=== PATIENT | female | born 1990 | race African-American/Black ===

== ENCOUNTER 2017-03-28 03:18 | Observation (INO) ==
[2017-03-28] MEDS ORDERED: SODIUM CHLORIDE 0.9% 1,000 ML IV STA (04:00)
--- NOTE | 2017-03-28 04:00 | Emergency Department Note ---
Arrival - Arrival Chief Complaint: Post Surgical Stated Complaint: got tonsils out , cant eat ED Nursing Triage Note: patient states she had toncils removed on the , complains that she cant eat anything, weak, ad decreased urine output. fould odor noted to breath. Mode of Arrival: Ambulatory Time Seen by Provider: 03/28/17 03:55 - History of Present Illness HPI Narrative: Patient had tonsils out Monday. She states now she is "weak" and has decreased urinary output. The patient has not been able to eat or drink due to soreness in the throat. She denies any fever but has had a white coating on her tongue which she says is abnormal. The patient denies any other complaints at this time. She states she was told by Dr. Baker's nurse to come up here to be evaluated. Allergies/Adverse Reactions: Allergies Allergy/AdvReac Type Severity Reaction Status Date / Time No Known Allergies Allergy Verified 03/25/17 17:15 Home Medications: Home Medications Medication Instructions Recorded Confirmed Type Norgestimate-Ethinyl Estradiol 1 each PO QAM 03/17/17 03/28/17 History [Sprintec 28 Day Tablet] HYDROcod/ACETAM 7.5-325MG/15ML 15 ml PO Q4H PRN 03/25/17 03/28/17 History Ibuprofen Liquid [Motrin Liquid] 15 ml PO Q4H 03/25/17 03/28/17 History Promethazine Liquid [Phenergan 25 mg PO Q6H PRN #300 ml 03/25/17 03/28/17 Rx Liquid] prednisoLONE LIQUID [prednisoLONE 15 ml PO DAILY 03/25/17 03/28/17 History Soln] Review of System - Review of System 12 point system: reviewed and no additional remarkable complaints except as stated Medical,Surgical,& Family Hx - Surgical History HEENT Surgeries: Surgical HX of: Tonsilectomy & Adenoidectomy (03/24/17) - Social History Smoking Status: Current every day smoker Frequency of Alcohol Use: Occasionally Type of Drug Use: None Exam Physical Examination: General: Patient is well-developed and well-nourished with no acute distress noted. HEENT: The extraocular muscles are intact. Oropharynx is moist. There is no erythema or exudate. The tympanic membranes are shiny bilaterally. The tonsils appear to have a small amount of exudate bilaterally which is normal for the given timeframe post tonsillectomy. I see no exudate or coating on the tongue at this time. There are no other lesions within the mouth. Neck: There is no adenopathy. Full range of motion is noted without pain. The trachea is midline. No JVD is present. Lungs: There is normal excursion of the chest with the lungs sounding clear bilaterally. No subcostal retractions are present. There is no point tenderness present. Heart: The heart has a regular rate and rhythm with no gallops or murmurs. Abdomen: The abdomen is nontender and nondistended with no rebound, guarding, or masses. Bowel sounds are normal. Back: The back demonstrates a normal appearance with no evidence of trauma. Genitourinary: Not examined. Extremities: The extremities demonstrate no clubbing, cyanosis, or edema. The visualized range of motion is normal. They appear atraumatic. Neuro: Cranial nerves II through XII are checked and intact. There is no focal motor or sensory deficit seen in the extremities. Skin: Skin is warm and dry with no evidence of rash. Vital Signs: Vital Signs Temperature 98.7 F 03/28/17 03:20 Pulse Rate 106 H 03/28/17 03:20 Respiratory Rate 20 03/28/17 03:20 Blood Pressure 132/88 03/28/17 03:20 O2 Sat by Pulse Oximetry 99 03/28/17 03:20 Course - Consultations Consultation #1: Discussed the patient with Dr. Roland who will come see the patient in a few hours. He request admit the patient to [facility]. He also recommends Decadron, clindamycin, and continuance of fluids. Time: 05:12 Results - Labs CBC & BMP: 03/28/17 04:05 03/28/17 04:05 Lab Results: I have reviewed the patients labs Disposition Clinical Impression: Symptomatic anemia, Status post tonsillectomy Case discussed with: patient Disposition: Still a Patient Condition: Stable Time of Disposition: 05:13
[2017-03-28 04:14] LABS: Eosinophils # 0.1 10*3/uL (0.0-0.87); Eosinophils % 0.8 % (0.00-10.9); Hemoglobin 8.9 GM/DL (12.0-16.0); Immature Granulocytes % 0.3 %; Immature Granulocytes Absolute 0.02 #; Lymphocytes # 1.7 10*3/uL (1.4-4.0); Lymphocytes % 24.1 % (21.3-54.2); Mean Corpuscular HGB Conc 30.7 GM/DL (32-36); Mean Corpuscular Hemoglobin 22 PG (27-34); Mean Corpuscular Volume 72.5 FL (87-102); Mean Platelet Volume 10.1 FL (9.6-12.0); Monocytes # 0.7 10*3/uL (0.11-0.8); Monocytes % 10.2 % (1.7-12.7); Neutrophils # 4.6 10*3/uL (1.4-7.4); Neutrophils % 64.6 % (38.7-73.9); Platelet Count 331 T/CUMM (130-400); Red Cell Distribution Width 15.6 % (9.3-17.3); White Blood Count 7.2 T/CUMM (4-12)
[2017-03-28 04:57] LABS: Calcium 9.1 MG/DL (8.5-10.1); Magnesium 2.2 MG/DL (1.8-2.4); Osmolality,Calculated 275.5 MOS/KG (273-304); Potassium 3.9 MMOL/L (3.5-5.1)
[2017-03-28 05:15] LABS: Apearance,Urine Slightly Hazy (Clear); Bilirubin,Urine Negative (Negative); Blood, Urine Negative (Negative); Glucose,Urine (UA) Negative (Negative); Ketones,Urine 20 mg/dL (Negative); Mucus,Urine Occasional /LPF (Occasional); Nitrite,Urine Negative (Negative); Protein,Urine Negative; RBC,Urine <1 /HPF (0-4); Squamous Epithelial Cell,Urine Occasional /HPF (0-10); Urine Color Yellow (Yellow); Urine Specific Gravity 1.021 (1.001-1.035); WBC,Urine 1 /HPF (0-6)
[2017-03-28] MEDS ORDERED: ONDANSETRON 4 MG/2 ML VIAL IV PRN (05:17)
[2017-03-28] MEDS ORDERED: HYDROcod/ACETAMIN 7.5-325 MG/15 ML UDCUP PO PRN (05:17)
[2017-03-28] MEDS ORDERED: IBUPROFEN 100 MG/5 ML UDCUP PO PRN (05:17)
[2017-03-28] MEDS: DEXAMETHASONE 4 MG/1 ML VIAL IV SCH ×2 (06:37→13:24)
[2017-03-28] MEDS: ONDANSETRON 4 MG/2 ML VIAL IV SCH ×3 (06:43→17:24)
[2017-03-28] MEDS ORDERED: DEXAMETHASONE INJ 4 MG in SODIUM CHLORIDE 0.9% 50 ML IV SCH (09:00)
[2017-03-28] MEDS: LACTATED RINGERS 1,000 ML IV SCH ×2 (09:06→14:17)
[2017-03-28] MEDS: CLINDAMYCIN 15 MG/ML 100 ML/BOTTLE PO SCH ×2 (09:06→13:24)
[2017-03-28] MEDS: HYDROcod/ACETAMIN 7.5-325 MG/15 ML UDCUP PO PRN ×2 (10:27→16:17)
[2017-03-28 13:06] LABS: Hematocrit 27.9 VOL% (35.7-47.0); Hemoglobin 8.5 GM/DL (12.0-16.0)
[2017-03-28 15:35] VITALS: BP 131/70
--- NOTE | 2017-03-28 17:36 | General Surg History&Physical ---
Assessment and Plan - Time spent with patient Time spent with patient: Less than 30 minutes (1) Status post tonsillectomy Status: Acute Assessment and plan: admit for observation, hydration, repeat H/H. administered parenteral steroids , clindamycin, hydrocodone liquid prn. will reexamine later today. Current Visit: Yes History of Present Illness Chief complaint: throat pain History of present illness: Ms. Da Silva is a 26 year old female s/p tonsillectomy and adenoidectomy on 03/24/17. Presented to ER with throat pain, seen by Dr. Bellamy, noted to have positive tilt test and H/H of 07/07. Reports throat still sore, denies any bleeding. Unsure about preop H/H or history of anemia. Home Medications Medication Instructions Recorded Confirmed Type Norgestimate-Ethinyl Estradiol 1 each PO QAM 03/17/17 03/28/17 History [Sprintec 28 Day Tablet] HYDROcod/ACETAM 7.5-325MG/15ML 15 ml PO Q4H PRN 03/25/17 03/28/17 History Ibuprofen Liquid [Motrin Liquid] 15 ml PO Q4H 03/25/17 03/28/17 History Promethazine Liquid [Phenergan 25 mg PO Q6H PRN #300 ml 03/25/17 03/28/17 Rx Liquid] prednisoLONE LIQUID [prednisoLONE 15 ml PO DAILY 03/25/17 03/28/17 History Soln] Allergies Allergy/AdvReac Type Severity Reaction Status Date / Time No Known Allergies Allergy Verified 03/25/17 17:15 Medical,Surgical,& Family Hx - Medical History HEENT: History of: Ear Problem (tubes placed to bilateral ears for fluid collection), Eye Problem (wears glasses) - Surgical History HEENT Surgeries: Surgical HX of: Tonsilectomy & Adenoidectomy (03/24/17) - Family History Family History: Reports;: Family Diabetes (mother), Family Hypertension (mother) , Additional Family History (mother has high cholesterol) - Social History Smoking Status: Current every day smoker Frequency of Alcohol Use: Occasionally Type of Drug Use: None Exam - Constitutional Vitals: Period Temp Pulse Resp BP Sys/Espino Pulse Ox Last 24 Hr 97.0 F-98.7 F 85-130 18-20 115-169/47-102 99-100 General appearance: morbidly obese - Head Head exam: Present: normal inspection - ENT Mouth exam: Present: other (expected eschar on tonsillar fossae. no clot, no blood. uvula with minimal edema) Results - Labs CBC & BMP: 03/28/17 12:53 03/28/17 04:05 - Impressions s/p T&A, normal postop appearance. anemia of unclear etiology, possibly pre- existing.
--- NOTE | 2017-03-28 17:41 | Discharge Summary ---
Hospital Course - Hospital Course Hospital Course: uneventful, able to tolerate liquids. no bleeding noted. H/H relatively stable - Time spent with patient Time with patient DS: Less than 30 minutes Diagnosis - Discharge Diagnosis (1) Status post tonsillectomy Status: Acute Specialty Discharge - Follow Up or Referrals Follow up with: Surendra Baker DO [Physician] - (Please call office first thing in the morning to find out when scheduled follow up appointment is and follow up as instructed with Dr. Baker.) - Speciality Discharge Instructions ENT Instructions: resume postop instructions from day surgery discharge Discharge Plan - Discharge Data Disposition: Disch To Home/Self Care Condition at Discharge: Stable Discharge Diet: advance to your usual diet Activity: resume usual activities as tolerated - Discharge Medications No Action Norgestimate-Ethinyl Estradiol [Sprintec 28 Day Tablet] 1 each PO QAM prednisoLONE LIQUID [prednisoLONE Soln] 15 ml PO DAILY HYDROcod/ACETAM 7.5-325MG/15ML 15 ml PO Q4H PRN PRN Reason: Pain Ibuprofen Liquid [Motrin Liquid] 15 ml PO Q4H Promethazine Liquid [Phenergan Liquid] 25 mg PO Q6H PRN #300 ml PRN Reason: nausea or pain - Follow Up or Referral Follow Up: Surendra Baker DO [Physician] - (Please call office first thing in the morning to find out when scheduled follow up appointment is and follow up as instructed with Dr. Baker.) - Forms/Instructions Instructions: Tonsillectomy (DC), Anemia (DC), Sore Throat, Building Wrecker ( GEN) Exam - Constitutional Vitals: Period Temp Pulse Resp BP Sys/Espino Pulse Ox Last 24 Hr 97.0 F-98.7 F 85-130 18-20 115-169/47-102 99-100 - ENT ENT exam: Present: other (normal postop appearance for tonsillectomy, POD 4) Discharge Results Labs on day of discharge: Labs from last 24 hours 03/28/17 03/28/17 03/28/17 12:53 04:05 04:05 WBC RBC Hgb 8.5 L Hct 27.9 L MCV MCH MCHC RDW Plt Count MPV Neut % (Auto) Lymph % (Auto) [place] % (Auto) Eos % (Auto) Baso % (Auto) Neut # (Auto) Lymph # (Auto) [place] # (Auto) Eos # (Auto) Baso # (Auto) Immature Gran % Nucleated RBC % Immature Gran # Nucleated RBCs # Sodium 139 Potassium 3.9 Chloride 103 Carbon Dioxide 30 Anion Gap 9.9 BUN 11 Creatinine 0.90 GFR Calculation 137 BUN/Creatinine Ratio 12.00 Glucose 96 Calculated Osmolality 275.5 Calcium 9.1 Magnesium 2.2 Urine Color Yellow Urine Appearance Slightly hazy Urine pH 7.0 Ur Specific [place] 1.021 Urine Protein Negative Urine Glucose (UA) Negative Urine Ketones 20 Urine Blood Negative Urine Nitrate Negative Urine Bilirubin Negative Urine Urobilinogen 4.0 H Urine Leukocytes Negative Urine RBC <1 Urine WBC 1 Ur Squamous Epith Cells Occasional Urine Mucus Occasional Ur Culture Indicated? Not indicated 03/28/17 04:05 WBC 7.2 RBC 4.00 Hgb 8.9 L Hct 29.0 L MCV 72.5 L MCH 22 L MCHC 30.7 L RDW 15.6 Plt Count 331 MPV 10.1 Neut % (Auto) 64.6 Lymph % (Auto) 24.1 [place] % (Auto) 10.2 Eos % (Auto) 0.8 Baso % (Auto) 0.0 Neut # (Auto) 4.6 Lymph # (Auto) 1.7 [place] # (Auto) 0.7 Eos # (Auto) 0.1 Baso # (Auto) 0.0 Immature Gran % 0.3 Nucleated RBC % 0.0 Immature Gran # 0.02 Nucleated RBCs # 0.00 Sodium Potassium Chloride Carbon Dioxide Anion Gap BUN Creatinine GFR Calculation BUN/Creatinine Ratio Glucose Calculated Osmolality Calcium Magnesium Urine Color Urine Appearance Urine pH Ur Specific [place] Urine Protein Urine Glucose (UA) Urine Ketones Urine Blood Urine Nitrate Urine Bilirubin Urine Urobilinogen Urine Leukocytes Urine RBC Urine WBC Ur Squamous Epith Cells Urine Mucus Ur Culture Indicated? DS: Provider Date of admission: 03/28/17 05:17 Primary care physician: . No PCP Attending physician on admission: Ayo Roland MD Discharging clinician: Ayo Roland MD Expected date of discharge: 03/28/17
== END 2017-03-28 18:05 | disposition home or self-care (01) ==
LOC: N.EDINP 03:18 → N.ED 03:18 → N.3E 05:50
PROVIDERS: ADMIT Otolaryngology; ATTEND Otolaryngology